=== PATIENT | female | born 1965 | race African-American/Black ===

== ENCOUNTER 2017-03-07 20:22 | Emergency (ER) | payer MEDICAID ==
[~2017-03-07] VITALS: Ht 167.6 cm; Wt 97.0 kg
[2017-03-07 22:01] VITALS: BP 155/73
[2017-03-07] MEDS ORDERED: SODIUM CHLORIDE 0.9% 1,000 ML IV ONE (23:18)
[2017-03-08 01:30] LABS: PROTHROMBIN TIME 10.4 sec
[2017-03-08 01:32] LABS: BASOPHILS % 1.1 % (0.0-2.0); HEMOGLOBIN. 10.1 g/dL (12.0-16.0); LYMPHOCYTES % 25.1 % (20.0-50.0); MEAN CORPUSCULAR HEMOGLOBIN 25.5 pg (28.0-32.0); MEAN CORPUSCULAR HGB CONC 32.6 g/dL (31.0-37.0); MEAN CORPUSCULAR VOLUME 78.3 fL (81.0-99.0); MEAN PLATELET VOLUME 9.1 fl (7.4-10.4); MONOCYTES % 8.6 % (2.0-8.0); NEUTROPHILS % 63.2 % (40.0-76.0); PLATELET 256 x1000/uL (130-400); RED BLOOD CELL COUNT 3.96 mill/uL (4.2-5.4); RED CELL DISTRIBUTION WIDTH 20.8 % (11.6-14.6); WHITE BLOOD COUNT 6.8 x1000/uL (4.5-11.0)
[2017-03-08 01:35] LABS: ALANINE AMINOTRANSFERASE 21 IU/L (13-61); ALBUMIN 3.4 g/dL (3.4-5.0); ANION GAP 9; CALCIUM 8.2 mg/dL (8.5-10.1); CARBON DIOXIDE 26 mEq/L (21-32); CHLORIDE 107 mEq/L (98-107); INDEX HEMOLYSI 1 (1-3); INDEX ICTERIC 1 (1-4); INDEX LIPEMIC 1 (1-3); TROPONIN I < 0.02 ng/mL (0.00-0.04); UREA NITROGEN BLOOD 12 mg/dL (7-21); eGFR > 60 mL/min (>60)
[2017-03-08 01:40] LABS: DIFFERENTIAL COMMENT 1
== END 2017-03-08 06:06 | disposition home or self-care (01) ==
LOC: ER 22:15
DX: R53.1 Weakness (principal); D64.9 Anemia, unspecified; I10 Essential (primary) hypertension; Z96.649 Presence of unspecified artificial hip joint
CPT/HCPCS: 36415; 70450; 71010; 80053; 84484; 85025; 85610; 93005; 99285; J7030

== ENCOUNTER 2017-05-22 10:56 | Inpatient (IN) | payer MEDICAID ==
[~2017-05-22] VITALS: Ht 167.6 cm; Wt 107.0 kg
[~2017-05-22 10:56] MED LIST: ASPI-1159 PO; CLON0.1T14 PO
[2017-05-22] MEDS ORDERED: ASPIRIN 81MG TABLET PO ONE (11:15)
[2017-05-22] MEDS ORDERED: NITROGLYCERIN 0.4MG TABLET SL SL PRN (11:15)
[2017-05-22 11:55] LABS: BASOPHILS % 1.3 % (0.0-2.0); EOSINOPHILS % 3.1 % (0.0-5.0); LYMPHOCYTES % 24.6 % (20.0-50.0); MEAN CORPUSCULAR HEMOGLOBIN 25.9 pg (28.0-32.0); MEAN CORPUSCULAR VOLUME 83.3 fL (81.0-99.0); MEAN PLATELET VOLUME 8.8 fl (7.4-10.4); MONOCYTES % 6.1 % (2.0-8.0); NEUTROPHILS % 64.9 % (40.0-76.0); PLATELET 209 x1000/uL (130-400); RED BLOOD CELL COUNT 2.49 mill/uL (4.2-5.4); RED CELL DISTRIBUTION WIDTH 23.8 % (11.6-14.6)
[2017-05-22 11:56] LABS: PROTHROMBIN TIME 10.6 sec
[2017-05-22 11:57] LABS: HEMOGLOBIN. 6.5 g/dL (12.0-16.0)
[2017-05-22 11:58] LABS: HEMATOCRIT. 20.8 % (36.0-48.0)
[2017-05-22 12:01] LABS: CARBON DIOXIDE 23 mEq/L (21-32); CHLORIDE 109 mEq/L (98-107)
[2017-05-22 12:06] LABS: TROPONIN I < 0.02 ng/mL (0.00-0.04)
[2017-05-22] MEDS ORDERED: IPRATROPIUM/ALBUTEROL 0.5-3(2.5)MG/3ML NEB INH PRN (13:15)
[2017-05-22] MEDS ORDERED: ONDANSETRON HCL 4MG/2ML VIAL IV PRN (13:15)
[2017-05-22] MEDS ORDERED: MAGNESIUM/ALUMINUM HYDROXIDE/SIMETHICONE 30ML UDC PO PRN (13:15)
[2017-05-22 14:24] LABS: PLATELET ESTIMATE NORMAL
[2017-05-22 15:05] LABS: CARBON DIOXIDE 23 mEq/L (21-32); CHLORIDE 108 mEq/L (98-107)
[2017-05-22 15:10] LABS: CREATINE KINASE 137 IU/L (26-192); TROPONIN I < 0.02 ng/mL (0.00-0.04)
[2017-05-22] MEDS: CLONIDINE 0.1MG TABLET PO PRN (15:10)
[2017-05-22 15:11] LABS: CREATINE KINASE MB FRACTION < 0.5 ng/mL (0.5-3.6)
[2017-05-22] MEDS: PANTOPRAZOLE SODIUM 40 MG/VIAL IV SCH (16:33)
[2017-05-22 16:40] VITALS: BP 132/81
[2017-05-22 16:49] VITALS: BP 157/84
[2017-05-22 17:40] VITALS: BP 139/79
[2017-05-22 20:00] VITALS: BP 136/76
[2017-05-22 23:38] LABS: CREATINE KINASE 119 IU/L (26-192); CREATINE KINASE MB FRACTION 0.6 ng/mL (0.5-3.6); TROPONIN I < 0.02 ng/mL (0.00-0.04)
[2017-05-23] VITALS: BP 130/67
[2017-05-23 04:00] VITALS: BP 130/67
[2017-05-23 06:01] LABS: BASOPHILS % 1.9 % (0.0-2.0); EOSINOPHILS % 3.8 % (0.0-5.0); HEMATOCRIT. 23.8 % (36.0-48.0); HEMOGLOBIN. 7.5 g/dL (12.0-16.0); LYMPHOCYTES % 23.4 % (20.0-50.0); MEAN CORPUSCULAR HEMOGLOBIN 25.9 pg (28.0-32.0); MEAN CORPUSCULAR VOLUME 82.7 fL (81.0-99.0); MEAN PLATELET VOLUME 8.5 fl (7.4-10.4); MONOCYTES % 6.3 % (2.0-8.0); NEUTROPHILS % 64.6 % (40.0-76.0); PLATELET 232 x1000/uL (130-400); RED BLOOD CELL COUNT 2.88 mill/uL (4.2-5.4); RED CELL DISTRIBUTION WIDTH 21.3 % (11.6-14.6)
[2017-05-23 08:30] VITALS: BP 144/86
[2017-05-23] MEDS: PANTOPRAZOLE SODIUM 40 MG/VIAL IV SCH (09:04)
[2017-05-23 12:00] VITALS: BP 132/70
[2017-05-23 16:00] VITALS: BP 136/76
[2017-05-23] MEDS: ACETAMINOPHEN 325MG TABLET PO PRN (18:29)
[2017-05-23 20:00] VITALS: BP 133/68
[2017-05-24] VITALS: BP 133/68
[2017-05-24 04:15] VITALS: BP 128/82
[2017-05-24 08:00] VITALS: BP 143/93
[2017-05-24] MEDS: PANTOPRAZOLE SODIUM 40 MG/VIAL IV SCH (08:35)
[2017-05-24] MEDS: ACETAMINOPHEN 325MG TABLET PO PRN (11:17)
[2017-05-24 12:00] VITALS: BP 134/82
[2017-05-24 16:00] VITALS: BP 114/72
[2017-05-24 20:00] VITALS: BP 158/96
[2017-05-24] MEDS: CLONIDINE 0.1MG TABLET PO PRN (21:15)
[2017-05-25] VITALS: BP 109/60
[2017-05-25 06:00] VITALS: BP 128/63
[2017-05-25] MEDS ORDERED: PANTOPRAZOLE 40MG DR TABLET PO SCH (06:45)
[2017-05-25 07:13] LABS: HEMATOCRIT. 25.8 % (36.0-48.0); HEMOGLOBIN. 8.1 g/dL (12.0-16.0); MEAN CORPUSCULAR HEMOGLOBIN 25.8 pg (28.0-32.0); MEAN CORPUSCULAR VOLUME 82.5 fL (81.0-99.0); MEAN PLATELET VOLUME 8.9 fl (7.4-10.4); PLATELET 365 x1000/uL (130-400); RED BLOOD CELL COUNT 3.13 mill/uL (4.2-5.4); RED CELL DISTRIBUTION WIDTH 21.6 % (11.6-14.6)
[2017-05-25 07:48] LABS: CARBON DIOXIDE 23 mEq/L (21-32); CHLORIDE 110 mEq/L (98-107)
[2017-05-25 08:00] VITALS: BP 125/76
[2017-05-25] MEDS ORDERED: SODIUM CHLORIDE 0.9% 10ML VIAL ONE (10:39)
[2017-05-25] MEDS ORDERED: IOHEXOL-350 100 ML BOTTLE ONE (10:39)
[2017-05-25 10:48] LABS: PLATELET ESTIMATE NORMAL
[2017-05-25 12:00] VITALS: BP 147/84
[2017-05-25 13:01] VITALS: BP 147/84
== END 2017-05-25 15:50 | disposition home or self-care (01) | DRG 243 ==
LOC: ER 10:56 → ENRESERV 12:50 → 5WST 12:50
PROVIDERS: ADMIT Internal Medicine; ATTEND Internal Medicine
PROC: 30233N1 Transfusion of Nonautologous Red Blood Cells into Peripheral Vein, Percutaneous Approach (ICD-10-PCS; principal; 2017-05-22)
PROC: 02HV33Z Insertion of Infusion Device into Superior Vena Cava, Percutaneous Approach (ICD-10-PCS; 2017-05-25)
PROC: B5181ZA Fluoroscopy of Superior Vena Cava using Low Osmolar Contrast, Guidance (ICD-10-PCS; 2017-05-25)
PROC: B548ZZA Ultrasonography of Superior Vena Cava, Guidance (ICD-10-PCS; 2017-05-25)
DX: K21.9 Gastro-esophageal reflux disease without esophagitis (principal); E44.1 Mild protein-calorie malnutrition; I16.1 Hypertensive emergency; F32.9 Major depressive disorder, single episode, unspecified; D50.9 Iron deficiency anemia, unspecified; E11.9 Type 2 diabetes mellitus without complications; J98.11 Atelectasis; E03.9 Hypothyroidism, unspecified; E78.5 Hyperlipidemia, unspecified; F41.9 Anxiety disorder, unspecified; M79.7 Fibromyalgia; Z86.73 Personal history of transient ischemic attack (TIA), and cerebral infarction without residual deficits; Z96.649 Presence of unspecified artificial hip joint; Z79.84 Long term (current) use of oral hypoglycemic drugs; Z79.899 Other long term (current) drug therapy; Z90.49 Acquired absence of other specified parts of digestive tract; Z79.82 Long term (current) use of aspirin
CPT/HCPCS: 36415; 36569; 71010; 71275; 76937; 77001; 80048; 80053; 80061; 82550; 82553; 82728; 83540; 83550; 83735; 83880; 84443; 84484; 85025; 85610; 86850; 86900; 86920; 93005; 93970; 96374; 99291; A4216; C1725; C9113; J7040; P9016; Q9967

== ENCOUNTER 2017-07-31 17:33 | Inpatient (IN) | payer MEDICAID ==
[~2017-07-31] VITALS: Ht 167.6 cm; Wt 103.4 kg
[2017-07-31] MEDS ORDERED: MORPHINE SULFATE 4 MG/ML CPJ (NOT FOR IM USE) IV ONE (19:15)
[2017-07-31 19:36] LABS: HEMATOCRIT. 25.9 % (36.0-48.0); HEMOGLOBIN. 8.2 g/dL (12.0-16.0); MEAN CORPUSCULAR HEMOGLOBIN 23.7 pg (28.0-32.0); MEAN CORPUSCULAR VOLUME 74.6 fL (81.0-99.0); MEAN PLATELET VOLUME 7.9 fl (7.4-10.4); PLATELET 280 x1000/uL (130-400); RED BLOOD CELL COUNT 3.47 mill/uL (4.2-5.4); RED CELL DISTRIBUTION WIDTH 19.7 % (11.6-14.6)
[2017-07-31 19:43] LABS: PROTHROMBIN TIME 10.7 sec (9.4-11.6)
[2017-07-31 19:47] LABS: CARBON DIOXIDE 24 mEq/L (21-32); CHLORIDE 108 mEq/L (98-107)
[2017-07-31 19:55] LABS: TROPONIN I < 0.02 ng/mL (0.00-0.04)
[2017-07-31] MEDS ORDERED: ASPIRIN 81MG TABLET PO ONE (20:00)
[2017-07-31 20:07] LABS: PLATELET ESTIMATE NORMAL
[2017-07-31 22:34] VITALS: BP 149/80
[2017-07-31] MEDS ORDERED: LEVO25TA7 PO (23:46)
[2017-07-31] MEDS ORDERED: HYDR25TA PO (23:46)
[2017-08-01] MEDS ORDERED: ACETAMINOPHEN 325MG TABLET PO PRN (00:30)
[2017-08-01] MEDS ORDERED: IPRATROPIUM/ALBUTEROL 0.5-3(2.5)MG/3ML NEB INH PRN (00:30)
[2017-08-01] MEDS ORDERED: HYDROCODONE/ACETAMINOPHEN 5/325MG TABLET PO PRN (00:30)
[2017-08-01] MEDS ORDERED: ONDANSETRON HCL 4MG/2ML VIAL IV PRN (00:30)
[2017-08-01] MEDS ORDERED: DOCUSATE SODIUM 100MG CAPSULE PO PRN (00:30)
[2017-08-01] MEDS ORDERED: MAGNESIUM/ALUMINUM HYDROXIDE/SIMETHICONE 30ML UDC PO PRN (00:30)
[2017-08-01] MEDS ORDERED: CLONIDINE 0.1MG TABLET PO PRN (00:30)
[2017-08-01 04:00] VITALS: BP 121/68
[2017-08-01 08:12] VITALS: BP 151/78
[2017-08-01] MEDS: FERROUS SULFATE 325MG TABLET PO SCH ×2 (09:00→09:58)
[2017-08-01 09:40] LABS: HEMATOCRIT. 25.8 % (36.0-48.0); HEMOGLOBIN. 8.1 g/dL (12.0-16.0); MEAN CORPUSCULAR HEMOGLOBIN 23.4 pg (28.0-32.0); MEAN PLATELET VOLUME 8.4 fl (7.4-10.4); PLATELET 247 x1000/uL (130-400); RED BLOOD CELL COUNT 3.44 mill/uL (4.2-5.4); RED CELL DISTRIBUTION WIDTH 18.8 % (11.6-14.6)
[2017-08-01] MEDS: FOLIC ACID 1MG TABLET PO SCH (09:58)
[2017-08-01] MEDS: MULTIVITAMINS,THER W-MINERALS TABLET PO SCH (09:58)
[2017-08-01] MEDS: THIAMINE HCL 100MG TABLET PO SCH (09:58)
[2017-08-01 10:17] LABS: CARBON DIOXIDE 25 mEq/L (21-32); CHLORIDE 108 mEq/L (98-107); CREATINE KINASE 162 IU/L (26-192); HDL CHOLESTEROL 81 mg/dL (40-59); LDL CHOLESTEROL 82 mg/dL (5-100); TROPONIN I < 0.02 ng/mL (0.00-0.04)
[2017-08-01 10:43] LABS: CLARITY URINE CLEAR (CLEAR); COLOR URINE YELLOW (YELLOW); GLUCOSE URINE NEGATIVE (NEGATIVE); KETONES URINE NEGATIVE (NEGATIVE); LEUKOCYTE ESTERASE URINE NEGATIVE (NEGATIVE); NITRITE URINE NEGATIVE (NEGATIVE); OCCULT BLOOD URINE NEGATIVE (NEGATIVE); PH URINE 6.5 (4.5-8.0); PROTEIN URINE NEGATIVE (NEGATIVE); SPECIFIC GRAVITY URINE 1.012 (1.005-1.030); UROBILINOGEN URINE 0.2 E.U./dL (0.2-1.0)
[2017-08-01 11:01] LABS: *AMPHETAMINES SCREEN URINE NEGATIVE (NEGATIVE); *BARBITURATES SCREEN URINE NEGATIVE (NEGATIVE); *BENZODIAZEPINES SCREEN URINE NEGATIVE (NEGATIVE); *COCAINE SCREEN URINE NEGATIVE (NEGATIVE); CANNABINOID URINE SCREEN NEGATIVE (NEGATIVE); METHADONE URINE SCREEN NEGATIVE (NEGATIVE); OPIATES URINE SCREEN PRESUMTIVE POSITIVE (NEGATIVE); PHENCYCLIDINE URINE SCREEN NEGATIVE (NEGATIVE)
[2017-08-01 12:05] VITALS: BP 139/70
[2017-08-01 13:49] LABS: PLATELET ESTIMATE NORMAL
[2017-08-01 16:37] LABS: CREATINE KINASE 182 IU/L (26-192); CREATINE KINASE MB FRACTION 0.7 ng/mL (0.5-3.6); TROPONIN I < 0.02 ng/mL (0.00-0.04)
[2017-08-01 16:54] VITALS: BP 152/78
[2017-08-01 20:00] VITALS: BP 148/81
[2017-08-02] VITALS: BP 152/76
[2017-08-02 04:00] VITALS: BP 135/62
[2017-08-02 07:04] LABS: HEMATOCRIT. 26.2 % (36.0-48.0); HEMOGLOBIN. 8.4 g/dL (12.0-16.0); MEAN CORPUSCULAR HEMOGLOBIN 23.6 pg (28.0-32.0); MEAN CORPUSCULAR VOLUME 73.8 fL (81.0-99.0); MEAN PLATELET VOLUME 8.7 fl (7.4-10.4); PLATELET 258 x1000/uL (130-400); RED BLOOD CELL COUNT 3.56 mill/uL (4.2-5.4); RED CELL DISTRIBUTION WIDTH 19.1 % (11.6-14.6)
[2017-08-02] MEDS ORDERED: LEVOTHYROXINE SODIUM 25MCG TABLET PO SCH (07:20)
[2017-08-02 07:49] LABS: CARBON DIOXIDE 24 mEq/L (21-32); CHLORIDE 107 mEq/L (98-107)
[2017-08-02 08:16] VITALS: BP 161/87
[2017-08-02] MEDS: MULTIVITAMINS,THER W-MINERALS TABLET PO SCH (08:46)
[2017-08-02] MEDS: THIAMINE HCL 100MG TABLET PO SCH (08:46)
[2017-08-02] MEDS: FERROUS SULFATE 325MG TABLET PO SCH (08:46)
[2017-08-02] MEDS: FOLIC ACID 1MG TABLET PO SCH (08:46)
[2017-08-02] MEDS ORDERED: ASPIRIN 81MG EC TABLET PO SCH (09:00)
[2017-08-02] MEDS ORDERED: HYDROCHLOROTHIAZIDE 25MG TABLET PO SCH (09:00)
[2017-08-02] MEDS ORDERED: CLONIDINE 0.1MG TABLET PO SCH (09:00)
[2017-08-02] MEDS ORDERED: DILTIAZEM HCL 120MG CAPSULE CD 24HR PO SCH (10:15)
[2017-08-02 12:24] VITALS: BP 132/73
[2017-08-02 14:53] LABS: PLATELET ESTIMATE NORMAL
[2017-08-02 15:19] VITALS: BP 132/73
[2017-08-02 16:52] VITALS: BP 130/77
== END 2017-08-02 16:25 | disposition home or self-care (01) | DRG 203 ==
LOC: ER 17:56 → EDBEDREQ 19:04 → EDBEDREQTM 20:18 → EDBEDREQ 20:18 → 6WST 20:18 → ENRESERV 20:47
PROVIDERS: ADMIT Internal Medicine; ATTEND Internal Medicine
DX: M94.0 Chondrocostal junction syndrome [Tietze] (principal); F20.9 Schizophrenia, unspecified; I10 Essential (primary) hypertension; D64.9 Anemia, unspecified; F31.9 Bipolar disorder, unspecified; M19.90 Unspecified osteoarthritis, unspecified site; M79.7 Fibromyalgia; Z96.643 Presence of artificial hip joint, bilateral; E66.9 Obesity, unspecified; Z68.36 Body mass index [BMI] 36.0-36.9, adult; Z79.899 Other long term (current) drug therapy; Z79.82 Long term (current) use of aspirin
CPT/HCPCS: 36415; 71010; 80048; 80053; 80061; 80305; 81003; 82550; 82553; 83735; 83880; 84443; 84484; 85025; 85610; 93005; 93971; 96374; 99285; J2270

== ENCOUNTER 2017-08-08 09:44 | Emergency (ER) | payer MEDICAID ==
[~2017-08-08] VITALS: Ht 167.6 cm; Wt 103.0 kg
[~2017-08-08 09:44] MED LIST changes: -ASPI-1159 PO; +HYDR25TA PO; +LEVO25TA7 PO
[2017-08-08] MEDS ORDERED: KETOROLAC 60MG/2ML VIAL IM ONE (11:30)
[2017-08-08 11:59] LABS: BASOPHILS % 1.3 % (0.0-2.0); EOSINOPHILS % 8.1 % (0.0-5.0); HEMATOCRIT. 27.3 % (36.0-48.0); HEMOGLOBIN. 8.6 g/dL (12.0-16.0); LYMPHOCYTES % 18.3 % (20.0-50.0); MEAN CORPUSCULAR HEMOGLOBIN 23.6 pg (28.0-32.0); MEAN PLATELET VOLUME 8.2 fl (7.4-10.4); MONOCYTES % 9.9 % (2.0-8.0); NEUTROPHILS % 62.4 % (40.0-76.0); PLATELET 231 x1000/uL (130-400); PROTHROMBIN TIME 10.7 sec (9.4-11.6); RED BLOOD CELL COUNT 3.63 mill/uL (4.2-5.4); RED CELL DISTRIBUTION WIDTH 18.8 % (11.6-14.6)
[2017-08-08 12:08] LABS: CARBON DIOXIDE 24 mEq/L (21-32); CHLORIDE 109 mEq/L (98-107); TROPONIN I < 0.02 ng/mL (0.00-0.04)
[2017-08-08 15:35] VITALS: BP 158/87
== END 2017-08-08 15:35 | disposition home or self-care (01) ==
LOC: ER 09:44
DX: M77.9 Enthesopathy, unspecified (principal); I10 Essential (primary) hypertension; Z79.82 Long term (current) use of aspirin
CPT/HCPCS: 36415; 71010; 80053; 84484; 85025; 85610; 85730; 93005; 93971; 96372; 99285; J1885; Z7610

== ENCOUNTER 2017-10-18 02:34 | Emergency (ER) | payer MEDICAID ==
[~2017-10-18] VITALS: Ht 167.6 cm; Wt 107.5 kg
[2017-10-18 05:20] LABS: BASOPHILS % 1.5 % (0.0-2.0); EOSINOPHILS % 1.6 % (0.0-5.0); HEMATOCRIT. 25.6 % (36.0-48.0); HEMOGLOBIN. 7.8 g/dL (12.0-16.0); LYMPHOCYTES % 30.1 % (20.0-50.0); MEAN CORPUSCULAR HEMOGLOBIN 21.2 pg (28.0-32.0); MEAN CORPUSCULAR VOLUME 70.1 fL (81.0-99.0); MEAN PLATELET VOLUME 9.1 fl (7.4-10.4); MONOCYTES % 6.7 % (2.0-8.0); NEUTROPHILS % 60.1 % (40.0-76.0); PLATELET 265 x1000/uL (130-400); RED BLOOD CELL COUNT 3.66 mill/uL (4.2-5.4); RED CELL DISTRIBUTION WIDTH 18.8 % (11.6-14.6)
[2017-10-18 05:23] LABS: PROTHROMBIN TIME 10.5 sec (9.4-11.6)
[2017-10-18 05:32] LABS: CARBON DIOXIDE 26 mEq/L (21-32); CHLORIDE 108 mEq/L (98-107); ETHANOL BLOOD < 10 mg/dL; TROPONIN I < 0.02 ng/mL (0.00-0.04)
[2017-10-18] MEDS: NITROGLYCERIN 0.4MG TABLET SL SL PRN (05:39)
[2017-10-18] MEDS: ASPIRIN 81MG TABLET PO ONE (05:39)
[2017-10-18 05:55] LABS: *AMPHETAMINES SCREEN URINE NEGATIVE (NEGATIVE); *BARBITURATES SCREEN URINE NEGATIVE (NEGATIVE); *BENZODIAZEPINES SCREEN URINE NEGATIVE (NEGATIVE); *COCAINE SCREEN URINE NEGATIVE (NEGATIVE); CANNABINOID URINE SCREEN NEGATIVE (NEGATIVE); METHADONE URINE SCREEN NEGATIVE (NEGATIVE); OPIATES URINE SCREEN NEGATIVE (NEGATIVE); PHENCYCLIDINE URINE SCREEN NEGATIVE (NEGATIVE)
[2017-10-18 09:40] VITALS: BP 140/72
== END 2017-10-18 09:48 | disposition home or self-care (01) ==
LOC: ER 03:00
DX: R07.89 Other chest pain (principal); I10 Essential (primary) hypertension; Z86.73 Personal history of transient ischemic attack (TIA), and cerebral infarction without residual deficits
CPT/HCPCS: 36415; 71010; 80053; 80305; 84484; 85025; 85610; 93005; 99285; G0482; Z7610

== ENCOUNTER 2018-01-20 12:33 | Emergency (ER) | payer MEDICAID ==
[~2018-01-20] VITALS: Ht 167.6 cm; Wt 113.0 kg
[2018-01-20 13:22] VITALS: BP 175/95
[2018-01-20] MEDS ORDERED: ACETAMINOPHEN 500MG TABLET PO ONE (14:00)
== END 2018-01-20 14:54 | disposition home or self-care (01) ==
LOC: ER 13:22
DX: M54.5 Low back pain (principal); I10 Essential (primary) hypertension; Z90.49 Acquired absence of other specified parts of digestive tract
CPT/HCPCS: 99282; Z7610

== ENCOUNTER 2018-03-11 21:28 | Inpatient (IN) | payer MEDICAID ==
[~2018-03-11] VITALS: Ht 167.6 cm; Wt 108.9 kg
[2018-03-11] MEDS ORDERED: LABETALOL 5MG/ML SYR 20 MG/4 ML SYRINGE IV ONE (22:00)
[2018-03-11] MEDS ORDERED: IOHEXOL-350 100 ML BOTTLE ONE (22:41)
[2018-03-11 23:07] LABS: HEMATOCRIT. 29.9 % (36.0-48.0); HEMOGLOBIN. 9.2 g/dL (12.0-16.0); MEAN CORPUSCULAR HEMOGLOBIN 21.5 pg (28.0-32.0); MEAN CORPUSCULAR VOLUME 69.9 fL (81.0-99.0); MEAN PLATELET VOLUME 8.2 fl (7.4-10.4); PLATELET 288 x1000/uL (130-400); RED BLOOD CELL COUNT 4.28 mill/uL (4.2-5.4); RED CELL DISTRIBUTION WIDTH 20.4 % (11.6-14.6)
[2018-03-11 23:13] LABS: CHLORIDE 107 mEq/L (98-107)
[2018-03-11 23:16] LABS: PARTIAL THROMBOPLASTIN TIME 27.1 sec (23.4-31.0); PROTHROMBIN TIME 10.2 sec (9.4-11.6)
[2018-03-11 23:17] LABS: ETHANOL BLOOD < 10 mg/dL
[2018-03-11 23:20] LABS: LDL CHOLESTEROL 92 mg/dL (5-100)
[2018-03-11 23:22] LABS: CREATINE KINASE 187 IU/L (26-192)
[2018-03-11 23:24] LABS: ATYPICAL LYMPHOCYTES 2; PLATELET ESTIMATE NORMAL
[2018-03-12] MEDS ORDERED: ASPIRIN 81MG TABLET PO ONE
[2018-03-12] MEDS ORDERED: NIFEDIPINE XL 60MG TAB PO SCH (00:30)
[2018-03-12] MEDS ORDERED: ONDANSETRON HCL 4MG/2ML VIAL IV PRN (00:30)
[2018-03-12] MEDS ORDERED: MAGNESIUM/ALUMINUM HYDROXIDE/SIMETHICONE 30ML UDC PO PRN (00:30)
[2018-03-12] MEDS ORDERED: DOCUSATE SODIUM 100MG CAPSULE PO PRN (00:30)
[2018-03-12] MEDS ORDERED: CLONIDINE 0.1MG TABLET PO PRN (00:30)
[2018-03-12] MEDS ORDERED: IPRATROPIUM/ALBUTEROL 0.5-3(2.5)MG/3ML NEB INH PRN (00:30)
[2018-03-12] MEDS ORDERED: HYDROCODONE/ACETAMINOPHEN 5/325MG TABLET PO PRN (00:30)
[2018-03-12] MEDS ORDERED: ACETAMINOPHEN 325MG TABLET PO PRN (00:30)
[2018-03-12 06:49] LABS: CHLORIDE 106 mEq/L (98-107)
[2018-03-12 06:58] LABS: CREATINE KINASE 171 IU/L (26-192)
[2018-03-12 07:00] LABS: CREATINE KINASE MB FRACTION 1.4 ng/mL (0.5-3.6)
[2018-03-12 10:30] VITALS: BP 170/85
[2018-03-12] MEDS: NIFEDIPINE XL 60MG TAB PO SCH (10:57)
[2018-03-12 12:00] VITALS: BP 162/85
[2018-03-12 16:00] VITALS: BP 145/82
[2018-03-12 16:08] LABS: CREATINE KINASE 165 IU/L (26-192)
[2018-03-12 16:09] LABS: CREATINE KINASE MB FRACTION 0.8 ng/mL (0.5-3.6)
[2018-03-12 20:00] VITALS: BP 129/75
[2018-03-13] VITALS (7 sets, daily range): BP systolic 115–149; BP diastolic 66–78
[2018-03-13 06:31] LABS: HEMOGLOBIN. 9.2 g/dL (12.0-16.0); MEAN CORPUSCULAR HEMOGLOBIN 21.2 pg (28.0-32.0); MEAN PLATELET VOLUME 8.7 fl (7.4-10.4); PLATELET 291 x1000/uL (130-400); RED BLOOD CELL COUNT 4.35 mill/uL (4.2-5.4); RED CELL DISTRIBUTION WIDTH 20.2 % (11.6-14.6)
[2018-03-13] MEDS ORDERED: HYDROCODONE/ACETAMINOPHEN 10/325MG TABLET PO PRN (08:30)
[2018-03-13 09:06] LABS: PLATELET ESTIMATE NORMAL
[2018-03-13] MEDS: ASPIRIN 81MG EC TABLET PO SCH (09:52)
[2018-03-13] MEDS: NIFEDIPINE XL 60MG TAB PO SCH (09:53)
[2018-03-13] MEDS ORDERED: GADOBENATE DIMEGLUMINE 529 MG/ML 10ML IV ONE (11:43)
[2018-03-13] MEDS: LOSARTAN POTASSIUM 50 MG TABLET PO SCH (13:21)
[2018-03-13] MEDS ORDERED: NIFE60TA64 PO (13:36)
[2018-03-13] MEDS ORDERED: DOCU-138 PO (13:36)
[2018-03-13] MEDS ORDERED: ASPI-1158 PO (13:36)
[2018-03-13] MEDS ORDERED: LOSA50TA3 PO (13:36)
[2018-03-13] MEDS: ENOXAPARIN 30MG/0.3ML SYR SUBCUT SCH (18:43)
[2018-03-14] VITALS: BP 123/81
[2018-03-14 04:00] VITALS: BP 143/79
[2018-03-14] MEDS: ENOXAPARIN 30MG/0.3ML SYR SUBCUT SCH (06:44)
[2018-03-14 08:00] VITALS: BP 128/78
[2018-03-14] MEDS: ASPIRIN 81MG EC TABLET PO SCH (09:02)
[2018-03-14] MEDS: LOSARTAN POTASSIUM 50 MG TABLET PO SCH (09:02)
[2018-03-14] MEDS: NIFEDIPINE XL 60MG TAB PO SCH (09:03)
[2018-03-14 16:00] VITALS: BP 132/74
== END 2018-03-14 17:25 | disposition home health service (06) | DRG 43 ==
LOC: ER 21:28 → 8WST 23:54 → EDBEDREQSVC 23:57 → EDBEDREQ 23:57 → EDBEDREQTM 23:57 → ENRESERV 03-12 09:54
PROVIDERS: ADMIT Internal Medicine; ATTEND Internal Medicine
DX: G35 Multiple sclerosis (principal); G45.9 Transient cerebral ischemic attack, unspecified; I10 Essential (primary) hypertension; E03.9 Hypothyroidism, unspecified; D64.9 Anemia, unspecified; Z90.49 Acquired absence of other specified parts of digestive tract; Z79.899 Other long term (current) drug therapy; I16.0 Hypertensive urgency
CPT/HCPCS: 36415; 70450; 70496; 70551; 70552; 71045; 80048; 80053; 80061; 82550; 82553; 82962; 83690; 83721; 83735; 83880; 84443; 84484; 85025; 85610; 85730; 93005; 93306; 93880; 93970; 96374; 97110; 97116; 97162; 97166; 99291; A9577; C1893; G0482; J1650; J3490; Q9967

== ENCOUNTER 2018-03-20 19:09 | Emergency (ER) | payer MEDICAID ==
[~2018-03-20] VITALS: Ht 167.6 cm; Wt 112.0 kg
[~2018-03-20 19:09] MED LIST changes: +ASPI-1158 PO; -CLON0.1T14 PO; +DOCU-138 PO; +LOSA50TA3 PO; +NIFE60TA64 PO
[2018-03-20] MEDS ORDERED: SODIUM CHLORIDE 0.9% 500 ML IV ONE (20:14)
[2018-03-20] MEDS ORDERED: ONDANSETRON HCL 4MG/2ML VIAL IV ONE (20:15)
[2018-03-20 20:55] LABS: BASOPHILS % 1.3 % (0.0-2.0); HEMATOCRIT. 28.1 % (36.0-48.0); HEMOGLOBIN. 8.8 g/dL (12.0-16.0); MEAN CORPUSCULAR HEMOGLOBIN 21.7 pg (28.0-32.0); MEAN CORPUSCULAR VOLUME 69.4 fL (81.0-99.0); MEAN PLATELET VOLUME 8.4 fl (7.4-10.4); MONOCYTES % 9.4 % (2.0-8.0); NEUTROPHILS % 69.3 % (40.0-76.0); PLATELET 267 x1000/uL (130-400); RED BLOOD CELL COUNT 4.05 mill/uL (4.2-5.4); RED CELL DISTRIBUTION WIDTH 20.7 % (11.6-14.6)
[2018-03-20 21:00] LABS: PROTHROMBIN TIME 10.2 sec (9.4-11.6)
[2018-03-20 21:22] LABS: PLATELET ESTIMATE NORMAL
[2018-03-20] MEDS ORDERED: METOCLOPRAMIDE HCL 10MG/2ML VIAL IV ONE (22:15)
[2018-03-20] MEDS ORDERED: DIPHENHYDRAMINE 50MG/ML VIAL IV ONE (22:15)
[2018-03-21 00:30] LABS: CHLORIDE 109 mEq/L (98-107)
[2018-03-21 00:56] VITALS: BP 160/85
== END 2018-03-21 01:01 | disposition home or self-care (01) ==
LOC: ER 21:23
DX: R55 Syncope and collapse (principal); R51 Headache; R11.2 Nausea with vomiting, unspecified; H53.8 Other visual disturbances; D50.9 Iron deficiency anemia, unspecified; I10 Essential (primary) hypertension; E03.9 Hypothyroidism, unspecified; Z79.82 Long term (current) use of aspirin; Z86.73 Personal history of transient ischemic attack (TIA), and cerebral infarction without residual deficits; Z90.49 Acquired absence of other specified parts of digestive tract; Z98.890 Other specified postprocedural states; Z96.659 Presence of unspecified artificial knee joint; Z79.899 Other long term (current) drug therapy
CPT/HCPCS: 36415; 70450; 71045; 80048; 83735; 83880; 84484; 85025; 85610; 93005; 96361; 96374; 96375; 99285; J1200; J2405; J2765; J7030; J7040; Z7610

== ENCOUNTER 2018-06-16 13:30 | Emergency (ER) | payer MEDICAID ==
[~2018-06-16] VITALS: Ht 167.6 cm; Wt 112.0 kg
[2018-06-16 17:09] VITALS: BP 167/74
== END 2018-06-16 17:10 | disposition home or self-care (01) ==
LOC: ER 13:30
DX: M79.662 Pain in left lower leg (principal); M79.661 Pain in right lower leg; D64.9 Anemia, unspecified; I10 Essential (primary) hypertension; Z90.49 Acquired absence of other specified parts of digestive tract; Z79.82 Long term (current) use of aspirin; Z79.899 Other long term (current) drug therapy
CPT/HCPCS: 93970; 99284; Z7610

== ENCOUNTER 2018-09-17 21:35 | Emergency (ER) | payer MEDICAID ==
[~2018-09-17] VITALS: Ht 167.6 cm; Wt 118.0 kg
[2018-09-17 21:43] VITALS: BP 194/86
== END 2018-09-18 04:11 | disposition home or self-care (01) ==
LOC: ER 21:35
DX: Z53.21 Procedure and treatment not carried out due to patient leaving prior to being seen by health care provider (principal)

== ENCOUNTER 2018-10-27 17:38 | Inpatient (IN) | payer MEDICAID ==
[~2018-10-27] VITALS: Ht 167.6 cm; Wt 117.9 kg
[2018-10-27] MEDS ORDERED: LABETALOL HCL 20MG/4ML CARPUJECT IV ONE (18:00)
[2018-10-27] MEDS ORDERED: ACYCLOVIR 400 MG TABLET PO ONE (21:00)
[2018-10-27] MEDS ORDERED: PREDNISONE 20MG TABLET PO ONE (21:00)
[2018-10-27 21:32] LABS: BASOPHILS % 1.4 % (0.0-2.0); EOSINOPHILS % 2.6 % (0.0-5.0); HEMATOCRIT. 33.7 % (36.0-48.0); HEMOGLOBIN. 10.5 g/dL (12.0-16.0); LYMPHOCYTES % 30.3 % (20.0-50.0); MEAN CORPUSCULAR HEMOGLOBIN 23.8 pg (28.0-32.0); MEAN CORPUSCULAR VOLUME 76.5 fL (81.0-99.0); MONOCYTES % 7.6 % (2.0-8.0); NEUTROPHILS % 58.1 % (40.0-76.0); PLATELET 277 x1000/uL (130-400); RED CELL DISTRIBUTION WIDTH 20.8 % (11.6-14.6)
[2018-10-27 21:39] LABS: CHLORIDE 107 mEq/L (98-107)
[2018-10-27 21:41] LABS: PROTHROMBIN TIME 10.1 sec (9.1-11.1)
[2018-10-27] MEDS ORDERED: ASPIRIN 81MG TABLET PO ONE (21:45)
[2018-10-27 21:58] LABS: CLARITY URINE CLEAR (CLEAR); COLOR URINE YELLOW (YELLOW); KETONES URINE NEGATIVE (NEGATIVE); LEUKOCYTE ESTERASE URINE NEGATIVE (NEGATIVE); NITRITE URINE NEGATIVE (NEGATIVE); OCCULT BLOOD URINE NEGATIVE (NEGATIVE); PH URINE 6.5 (4.5-8.0); PROTEIN URINE NEGATIVE (NEGATIVE); SPECIFIC GRAVITY URINE 1.013 (1.005-1.030); UROBILINOGEN URINE 0.2 E.U./dL (0.2-1.0)
[2018-10-27] MEDS ORDERED: ACETAMINOPHEN 325MG TABLET PO PRN (22:00)
[2018-10-27] MEDS ORDERED: MAGNESIUM/ALUMINUM HYDROXIDE/SIMETHICONE 30ML UDC PO PRN (22:00)
[2018-10-27] MEDS ORDERED: DIPHENHYDRAMINE 50MG/ML VIAL IV PRN (22:00)
[2018-10-27] MEDS ORDERED: NA PHOS,M-B/NA PHOS,DI-BA ENEMA 118ML PR PRN (22:00)
[2018-10-27] MEDS ORDERED: TRAMADOL 50MG TABLET PO PRN (22:00)
[2018-10-27] MEDS ORDERED: DOCUSATE SODIUM 100MG CAPSULE PO PRN (22:00)
[2018-10-27] MEDS ORDERED: GUAIFENESIN 200MG/10ML SUGAR FREE UDC PO PRN (22:00)
[2018-10-27] MEDS ORDERED: KETOROLAC 15MG/ML VIAL IV PRN (22:00)
[2018-10-27] MEDS ORDERED: ONDANSETRON HCL 4MG/2ML INJ IV PRN (22:00)
[2018-10-27] MEDS ORDERED: IPRATROPIUM/ALBUTEROL 0.5-3(2.5)MG/3ML NEB INH PRN (22:00)
[2018-10-27] MEDS ORDERED: LORAZEPAM 0.5MG TABLET PO PRN (22:00)
[2018-10-27] MEDS ORDERED: NITROGLYCERIN 0.4MG TABLET SL SL PRN (22:00)
[2018-10-27] MEDS ORDERED: CLONIDINE 0.2MG TABLET PO PRN (22:00)
[2018-10-27 22:44] LABS: TOTAL IRON BINDING CAPACITY 503 ug/dL (250-450)
[2018-10-27 22:45] LABS: CREATINE KINASE 228 IU/L (26-192); HDL CHOLESTEROL 88 mg/dL (40-59); LDL CHOLESTEROL 96 mg/dL (5-100)
[2018-10-27 22:47] LABS: CREATINE KINASE MB FRACTION 1.3 ng/mL (0.5-3.6); T4 FREE 0.94 ng/dL (0.76-1.46)
[2018-10-27 22:57] LABS: FOLIC ACID (FOLATE) SERUM 7.5 ng/mL (>5.38)
[2018-10-28 06:45] LABS: CREATINE KINASE 223 IU/L (26-192)
[2018-10-28 06:46] LABS: CREATINE KINASE MB FRACTION 1.2 ng/mL (0.5-3.6)
[2018-10-28 15:17] LABS: *BARBITURATES SCREEN URINE NEGATIVE (NEGATIVE); *BENZODIAZEPINES SCREEN URINE NEGATIVE (NEGATIVE); *COCAINE SCREEN URINE NEGATIVE (NEGATIVE); METHADONE URINE SCREEN NEGATIVE (NEGATIVE); OPIATES URINE SCREEN NEGATIVE (NEGATIVE)
[2018-10-28 15:19] LABS: *AMPHETAMINES SCREEN URINE NEGATIVE (NEGATIVE); CANNABINOID URINE SCREEN NEGATIVE (NEGATIVE); PHENCYCLIDINE URINE SCREEN NEGATIVE (NEGATIVE)
[2018-10-28 20:09] VITALS: BP 161/87
[2018-10-28] MEDS ORDERED: ZOLPIDEM TARTRATE 5MG TABLET PO PRN (20:21)
[2018-10-28] MEDS: ENOXAPARIN 30MG/0.3ML SYR SUBCUT SCH ×2 (21:00→21:48)
[2018-10-28] MEDS: FAMOTIDINE 20MG TABLET PO SCH (21:46)
[2018-10-28] MEDS: LISINOPRIL 20MG TABLET PO SCH (21:47)
[2018-10-28] MEDS: METOPROLOL TARTRATE 25MG TABLET PO SCH (21:47)
[2018-10-28] MEDS: NIFEDIPINE XL 60MG TAB PO SCH (22:11)
[2018-10-29] VITALS: BP 120/65
[2018-10-29] MEDS ORDERED: CLON0.1T14 PO (00:47)
[2018-10-29] MEDS ORDERED: AMLO2.5T45 PO (00:47)
[2018-10-29] MEDS ORDERED: LEVO25TA2 PO (00:47)
[2018-10-29 04:00] VITALS: BP 112/63
[2018-10-29] MEDS: NIFEDIPINE XL 60MG TAB PO SCH ×3 (08:19→10:23)
[2018-10-29] MEDS: FAMOTIDINE 20MG TABLET PO SCH ×3 (08:20→10:21)
[2018-10-29] MEDS: ASPIRIN 325MG EC TABLET PO SCH ×3 (08:20→10:23)
[2018-10-29] MEDS: LISINOPRIL 20MG TABLET PO SCH ×3 (08:21→10:22)
[2018-10-29] MEDS: ENOXAPARIN 30MG/0.3ML SYR SUBCUT SCH ×3 (08:23→10:22)
[2018-10-29] MEDS: METOPROLOL TARTRATE 25MG TABLET PO SCH ×2 (08:29→20:23)
[2018-10-29 12:00] VITALS: BP 146/85
[2018-10-29 20:41] VITALS: BP 117/69
[2018-10-30 00:22] VITALS: BP 104/47
[2018-10-30 04:00] VITALS: BP 132/59
[2018-10-30] MEDS: LEVOTHYROXINE SODIUM 50MCG TABLET PO SCH (06:35)
[2018-10-30 08:00] VITALS: BP 132/75
[2018-10-30] MEDS: FAMOTIDINE 20MG TABLET PO SCH ×2 (09:00→22:20)
[2018-10-30] MEDS: ASPIRIN 325MG EC TABLET PO SCH (09:00)
[2018-10-30] MEDS: METOPROLOL TARTRATE 25MG TABLET PO SCH ×2 (09:00→22:21)
[2018-10-30] MEDS: ENOXAPARIN 30MG/0.3ML SYR SUBCUT SCH (09:00)
[2018-10-30] MEDS: LISINOPRIL 20MG TABLET PO SCH ×2 (09:01→22:21)
[2018-10-30] MEDS ORDERED: GADOBENATE DIMEGLUMINE 529 MG/ML 10ML IV ONE (11:22)
[2018-10-30 12:00] VITALS: BP 146/84
[2018-10-30 16:00] VITALS: BP 138/78
[2018-10-30 20:00] VITALS: BP 115/65
[2018-10-30] MEDS: DEXAMETHASONE 4MG/ML 1ML VIAL IV SCH (23:46)
[2018-10-31] VITALS: BP 127/62
[2018-10-31] MEDS: DEXAMETHASONE 4MG/ML 1ML VIAL IV SCH ×3 (05:41→14:01)
[2018-10-31] MEDS: LEVOTHYROXINE SODIUM 50MCG TABLET PO SCH (07:20)
[2018-10-31 08:00] VITALS: BP 172/86
[2018-10-31] MEDS: METOPROLOL TARTRATE 25MG TABLET PO SCH (09:00)
[2018-10-31] MEDS: LISINOPRIL 20MG TABLET PO SCH (09:00)
[2018-10-31] MEDS: FAMOTIDINE 20MG TABLET PO SCH (09:00)
[2018-10-31] MEDS: NIFEDIPINE XL 60MG TAB PO SCH (09:00)
== END 2018-10-31 17:49 | disposition left against medical advice (07) | DRG 347 ==
LOC: EDBEDREQ 17:57 → ER 19:51 → 6WST 21:57 → EDBEDREQ 22:02 → EDBEDREQTM 22:02 → ENRESERV 10-28 16:55
PROVIDERS: ADMIT Internal Medicine; ATTEND Internal Medicine
DX: M48.02 Spinal stenosis, cervical region (principal); G82.50 Quadriplegia, unspecified; M47.12 Other spondylosis with myelopathy, cervical region; G35 Multiple sclerosis; I11.0 Hypertensive heart disease with heart failure; H47.092 Other disorders of optic nerve, not elsewhere classified, left eye; I50.30 Unspecified diastolic (congestive) heart failure; H51.23 Internuclear ophthalmoplegia, bilateral; E03.9 Hypothyroidism, unspecified; D63.8 Anemia in other chronic diseases classified elsewhere; G51.0 Bell's palsy; I16.1 Hypertensive emergency; Z96.643 Presence of artificial hip joint, bilateral; Z90.49 Acquired absence of other specified parts of digestive tract; Z82.49 Family history of ischemic heart disease and other diseases of the circulatory system
CPT/HCPCS: 36415; 70543; 70551; 71045; 72156; 80061; 80305; 82550; 82553; 82607; 82746; 82962; 83036; 83540; 83550; 84439; 84443; 84484; 93005; 93970; 97162; 97166; 99284; 99291; A9577; J1100; J1650; J1885; J7512

== ENCOUNTER 2018-12-22 14:45 | Emergency (ER) | payer MEDICAID ==
[~2018-12-22] VITALS: Ht 167.6 cm; Wt 119.0 kg
[~2018-12-22 14:45] MED LIST changes: +AMLO2.5T45 PO; -ASPI-1158 PO; +CLON0.1T14 PO; -DOCU-138 PO; -HYDR25TA PO; +LEVO25TA2 PO; -LEVO25TA7 PO; -LOSA50TA3 PO; -NIFE60TA64 PO
[2018-12-22 15:41] VITALS: BP 182/101
== END 2018-12-23 00:10 | disposition left against medical advice (07) ==
LOC: ER 14:45
DX: M54.2 Cervicalgia (principal); M79.601 Pain in right arm; Z53.21 Procedure and treatment not carried out due to patient leaving prior to being seen by health care provider

== ENCOUNTER 2018-12-30 13:19 | Emergency (ER) | payer MEDICAID ==
[~2018-12-30] VITALS: Ht 167.6 cm; Wt 118.0 kg
[2018-12-30 14:37] VITALS: BP 179/110
[2018-12-30 15:00] LABS: BASOPHILS % 1.3 % (0.0-2.0); EOSINOPHILS % 1.7 % (0.0-5.0); HEMATOCRIT. 36.1 % (36.0-48.0); HEMOGLOBIN. 11.7 g/dL (12.0-16.0); LYMPHOCYTES % 23.8 % (20.0-50.0); MEAN CORPUSCULAR HEMOGLOBIN 26.7 pg (28.0-32.0); MEAN CORPUSCULAR VOLUME 82.1 fL (81.0-99.0); MEAN PLATELET VOLUME 9.1 fl (7.4-10.4); NEUTROPHILS % 66.2 % (40.0-76.0); PLATELET 267 x1000/uL (130-400); RED BLOOD CELL COUNT 4.39 mill/uL (4.2-5.4); RED CELL DISTRIBUTION WIDTH 19.7 % (11.6-14.6)
[2018-12-30 15:06] LABS: CHLORIDE 107 mEq/L (98-107)
== END 2018-12-30 15:36 | disposition home or self-care (01) ==
LOC: ER 13:19
DX: S40.011A Contusion of right shoulder, initial encounter (principal); S00.83XA Contusion of other part of head, initial encounter; R07.89 Other chest pain; W01.10XA Fall on same level from slipping, tripping and stumbling with subsequent striking against unspecified object, initial encounter; Y93.89 Activity, other specified; Y92.89 Other specified places as the place of occurrence of the external cause; G35 Multiple sclerosis
CPT/HCPCS: 36415; 71045; 73030; 84484; 93005; 99284

== ENCOUNTER 2019-03-25 10:51 | Emergency (ER) | payer MEDICAID ==
[~2019-03-25] VITALS: Ht 167.6 cm; Wt 98.2 kg
[2019-03-25] MEDS ORDERED: LABETALOL 5MG/ML SYR 20 MG/4 ML SYRINGE IV ONE (11:45)
[2019-03-25 12:15] LABS: BASOPHILS % 1.9 % (0.0-2.0); EOSINOPHILS % 3.4 % (0.0-5.0); HEMATOCRIT. 31.2 % (36.0-48.0); HEMOGLOBIN. 10.1 g/dL (12.0-16.0); LYMPHOCYTES % 23.2 % (20.0-50.0); MEAN CORPUSCULAR HEMOGLOBIN 27.1 pg (28.0-32.0); MEAN CORPUSCULAR VOLUME 83.7 fL (81.0-99.0); MEAN PLATELET VOLUME 9.4 fl (7.4-10.4); MONOCYTES % 8.1 % (2.0-8.0); NEUTROPHILS % 63.4 % (40.0-76.0); PLATELET 218 x1000/uL (130-400); RED BLOOD CELL COUNT 3.73 mill/uL (4.2-5.4); RED CELL DISTRIBUTION WIDTH 16.9 % (11.6-14.6)
[2019-03-25 12:21] LABS: CHLORIDE 111 mEq/L (98-107)
[2019-03-25 12:25] LABS: PARTIAL THROMBOPLASTIN TIME 28.9 sec (23.4-31.0); PROTHROMBIN TIME 10.3 sec (9.6-11.0)
[2019-03-25 12:26] LABS: ETHANOL BLOOD < 10 mg/dL
[2019-03-25 13:30] LABS: CLARITY URINE CLEAR (CLEAR); COLOR URINE YELLOW (YELLOW); KETONES URINE NEGATIVE (NEGATIVE); LEUKOCYTE ESTERASE URINE NEGATIVE (NEGATIVE); NITRITE URINE NEGATIVE (NEGATIVE); OCCULT BLOOD URINE NEGATIVE (NEGATIVE); PROTEIN URINE NEGATIVE (NEGATIVE); SPECIFIC GRAVITY URINE 1.021 (1.005-1.030); UROBILINOGEN URINE 0.2 E.U./dL (0.2-1.0)
[2019-03-25 13:41] LABS: *BENZODIAZEPINES SCREEN URINE NEGATIVE (NEGATIVE); *COCAINE SCREEN URINE NEGATIVE (NEGATIVE)
[2019-03-25 13:42] LABS: *AMPHETAMINES SCREEN URINE NEGATIVE (NEGATIVE); *BARBITURATES SCREEN URINE NEGATIVE (NEGATIVE); CANNABINOID URINE SCREEN NEGATIVE (NEGATIVE); METHADONE URINE SCREEN NEGATIVE (NEGATIVE); OPIATES URINE SCREEN NEGATIVE (NEGATIVE); PHENCYCLIDINE URINE SCREEN NEGATIVE (NEGATIVE)
[2019-03-25] MEDS ORDERED: AMLODIPINE 2.5MG TABLET PO ONE (15:00)
[2019-03-25] MEDS ORDERED: CLONIDINE 0.1MG TABLET PO ONE (15:00)
[2019-03-25 18:38] VITALS: BP 152/81
== END 2019-03-25 18:48 | disposition short-term general hospital (02) ==
LOC: ER 10:51
DX: I16.0 Hypertensive urgency (principal); I11.0 Hypertensive heart disease with heart failure; I50.9 Heart failure, unspecified; R11.2 Nausea with vomiting, unspecified; Z86.73 Personal history of transient ischemic attack (TIA), and cerebral infarction without residual deficits; Z90.49 Acquired absence of other specified parts of digestive tract; Z96.649 Presence of unspecified artificial hip joint; Z90.89 Acquired absence of other organs; Z79.899 Other long term (current) drug therapy
CPT/HCPCS: 36415; 70450; 71045; 80053; 80305; 80320; 81003; 83880; 84484; 85025; 85610; 85730; 93005; 96374; 99291; J3490; Z7610; G0480

== ENCOUNTER 2019-05-21 17:12 | Inpatient (IN) | payer MEDICAID ==
[~2019-05-21] VITALS: Ht 167.6 cm; Wt 128.4 kg
[2019-05-21] MEDS ORDERED: ONDANSETRON HCL 4MG/2ML INJ IV STA (18:03)
[2019-05-21] MEDS ORDERED: MORPHINE SULFATE 4 MG/ML CPJ (NOT FOR IM USE) IV STA (18:03)
[2019-05-21] MEDS ORDERED: NITROGLYCERIN OINT 1GM/INCH UDPKT TD ONE (18:15)
[2019-05-21 18:48] LABS: EOSINOPHILS % 2.2 % (0.0-5.0); HEMATOCRIT. 33.5 % (36.0-48.0); HEMOGLOBIN. 10.9 g/dL (12.0-16.0); LYMPHOCYTES % 20.2 % (20.0-50.0); MEAN CORPUSCULAR HEMOGLOBIN 27.5 pg (28.0-32.0); MEAN CORPUSCULAR VOLUME 84.2 fL (81.0-99.0); MEAN PLATELET VOLUME 9.3 fl (7.4-10.4); MONOCYTES % 9.6 % (2.0-8.0); PLATELET 227 x1000/uL (130-400); RED BLOOD CELL COUNT 3.97 mill/uL (4.2-5.4); RED CELL DISTRIBUTION WIDTH 17.8 % (11.6-14.6)
[2019-05-21 18:50] LABS: CHLORIDE 106 mEq/L (98-107)
[2019-05-21 18:52] LABS: *BARBITURATES SCREEN URINE NEGATIVE (NEGATIVE)
[2019-05-21 18:53] LABS: *AMPHETAMINES SCREEN URINE NEGATIVE (NEGATIVE)
[2019-05-21 18:54] LABS: *BENZODIAZEPINES SCREEN URINE NEGATIVE (NEGATIVE); *COCAINE SCREEN URINE NEGATIVE (NEGATIVE); METHADONE URINE SCREEN NEGATIVE (NEGATIVE)
[2019-05-21 18:55] LABS: CANNABINOID URINE SCREEN NEGATIVE (NEGATIVE); OPIATES URINE SCREEN NEGATIVE (NEGATIVE); PHENCYCLIDINE URINE SCREEN NEGATIVE (NEGATIVE)
[2019-05-21] MEDS ORDERED: LORAZEPAM 0.5MG TABLET PO PRN (22:15)
[2019-05-21] MEDS ORDERED: IPRATROPIUM/ALBUTEROL 0.5-3(2.5)MG/3ML NEB INH PRN (22:15)
[2019-05-21] MEDS ORDERED: CLONIDINE 0.1MG TABLET PO PRN (22:15)
[2019-05-21] MEDS ORDERED: ONDANSETRON HCL 4MG/2ML INJ IV PRN (22:15)
[2019-05-21] MEDS ORDERED: HYDROCODONE/ACETAMINOPHEN 5/325MG TABLET PO PRN (22:15)
[2019-05-21] MEDS ORDERED: DOCUSATE SODIUM 100MG CAPSULE PO PRN (22:15)
[2019-05-22] MEDS: ACETAMINOPHEN 325MG TABLET PO PRN ×2 (02:32→16:58)
[2019-05-22 02:35] VITALS: BP 128/67
[2019-05-22 04:00] VITALS: BP 112/57
[2019-05-22 06:52] LABS: EOSINOPHILS % 3.2 % (0.0-5.0); HEMATOCRIT. 32.1 % (36.0-48.0); HEMOGLOBIN. 10.7 g/dL (12.0-16.0); LYMPHOCYTES % 26.1 % (20.0-50.0); MEAN CORPUSCULAR HEMOGLOBIN 28.2 pg (28.0-32.0); MEAN CORPUSCULAR VOLUME 84.7 fL (81.0-99.0); MONOCYTES % 10.3 % (2.0-8.0); NEUTROPHILS % 59.4 % (40.0-76.0); PLATELET 209 x1000/uL (130-400); RED BLOOD CELL COUNT 3.79 mill/uL (4.2-5.4); RED CELL DISTRIBUTION WIDTH 17.4 % (11.6-14.6)
[2019-05-22 07:04] LABS: CHLORIDE 106 mEq/L (98-107)
[2019-05-22 08:00] VITALS: BP 130/72
[2019-05-22] MEDS ORDERED: CLONIDINE 0.1MG TABLET PO SCH (12:00)
[2019-05-22] MEDS ORDERED: ENOXAPARIN 30MG/0.3ML SYR SUBCUT SCH (12:30)
[2019-05-22 12:51] VITALS: BP 135/78
[2019-05-22] MEDS: AMLODIPINE 2.5MG TABLET PO SCH ×2 (12:54→20:34)
[2019-05-22 13:26] LABS: BG BASE EXCESS -0.6 mmol/L (-2.0-2.0); BG CARBOXYHEMOGLOBIN 0.3 % (0.5-1.5); BG DEOXYHEMOGLOBIN 3.1 % (0.0-5.0); BG FRACTION INSPIRED OXYGEN 21; BG HCO3 ACT 23.7 mmol/L (22.0-26.0); BG METHEMOGLOBIN 0.2 % (0.0-1.5); BG OXYGEN SATURATION 96.9 % (92.0-98.5); BG OXYHEMOGLOBIN 96.4 % (94.0-97.0); BG PCO2 37.9 mmHg (35.0-45.0); BG PH 7.414 (7.350-7.450); BG SAMPLE SITE LEFT RADIAL; BG TOTAL HEMOGLOBIN 11.9 g/dL (12.0-18.0); BG VENT MODE ROOM AIR
[2019-05-22] MEDS ORDERED: CLON0.1T PO (14:13)
[2019-05-22] MEDS ORDERED: MULT1TAB63 PO (14:13)
[2019-05-22] MEDS ORDERED: AMLO10TA80 PO (14:13)
[2019-05-22] MEDS ORDERED: CLOP75TA4 PO (14:13)
[2019-05-22] MEDS ORDERED: FOLI-43 PO (14:13)
[2019-05-22] MEDS ORDERED: LEVO25TA2 PO (14:20)
[2019-05-22] MEDS ORDERED: REGADENOSON 0.4 MG/5 ML IV NR (15:15)
[2019-05-22] MEDS ORDERED: ASPIRIN 81MG EC TABLET PO NR (15:30)
[2019-05-22 16:06] VITALS: BP 139/65
[2019-05-22 17:49] LABS: PROTHROMBIN TIME 10.2 sec (9.6-11.0)
[2019-05-22 20:00] VITALS: BP 136/75
[2019-05-22] MEDS: ENOXAPARIN 40MG/0.4ML SYR SUBCUT SCH (20:34)
[2019-05-23] VITALS: BP 145/74
[2019-05-23 04:00] VITALS: BP 153/84
[2019-05-23] MEDS ORDERED: LEVOTHYROXINE SODIUM 25MCG TABLET PO SCH (07:20)
[2019-05-23 08:17] VITALS: BP 166/91
[2019-05-23] MEDS: ENOXAPARIN 40MG/0.4ML SYR SUBCUT SCH (09:00)
[2019-05-23] MEDS ORDERED: ASPIRIN 81MG EC TABLET PO SCH (09:00)
[2019-05-23] MEDS ORDERED: REGADENOSON 0.4 MG/5 ML IV ONE (09:06)
[2019-05-23] MEDS: ACETAMINOPHEN 325MG TABLET PO PRN (10:20)
[2019-05-23] MEDS: AMLODIPINE 2.5MG TABLET PO SCH (10:21)
[2019-05-23 12:18] VITALS: BP 124/71
[2019-05-23 15:39] LABS: BASOPHILS % 1.1 % (0.0-2.0); EOSINOPHILS % 3.2 % (0.0-5.0); HEMATOCRIT. 36.8 % (36.0-48.0); LYMPHOCYTES % 20.4 % (20.0-50.0); MEAN CORPUSCULAR HEMOGLOBIN 27.7 pg (28.0-32.0); MEAN CORPUSCULAR VOLUME 85.2 fL (81.0-99.0); MEAN PLATELET VOLUME 9.8 fl (7.4-10.4); MONOCYTES % 9.3 % (2.0-8.0); PLATELET 233 x1000/uL (130-400); RED BLOOD CELL COUNT 4.32 mill/uL (4.2-5.4); RED CELL DISTRIBUTION WIDTH 17.9 % (11.6-14.6)
[2019-05-23 16:14] VITALS: BP 149/92
[2019-05-23 17:03] VITALS: BP 149/92
[2019-05-23 17:38] LABS: CHLORIDE 104 mEq/L (98-107)
[2019-05-23 17:45] LABS: LDL CHOLESTEROL 95 mg/dL (5-100)
[2019-05-23 17:46] LABS: HDL CHOLESTEROL 75 mg/dL (40-59)
[2019-05-23 17:47] LABS: T4 FREE 1.02 ng/dL (0.76-1.46)
== END 2019-05-23 18:00 | disposition home or self-care (01) | DRG 203 ==
LOC: ER 18:38 → 6WST 18:39 → ENRESERV 05-22 01:22
PROVIDERS: ADMIT Internal Medicine; ATTEND Internal Medicine
DX: R07.89 Other chest pain (principal); G82.50 Quadriplegia, unspecified; I50.43 Acute on chronic combined systolic (congestive) and diastolic (congestive) heart failure; E83.51 Hypocalcemia; G35 Multiple sclerosis; M48.02 Spinal stenosis, cervical region; E66.2 Morbid (severe) obesity with alveolar hypoventilation; I11.0 Hypertensive heart disease with heart failure; D63.8 Anemia in other chronic diseases classified elsewhere; E89.0 Postprocedural hypothyroidism; G40.909 Epilepsy, unspecified, not intractable, without status epilepticus; G51.0 Bell's palsy; Z96.643 Presence of artificial hip joint, bilateral; H49.9 Unspecified paralytic strabismus; J98.11 Atelectasis; M79.7 Fibromyalgia; Z82.3 Family history of stroke; Z68.42 Body mass index [BMI] 45.0-49.9, adult; Z82.49 Family history of ischemic heart disease and other diseases of the circulatory system; Z86.73 Personal history of transient ischemic attack (TIA), and cerebral infarction without residual deficits; Z90.49 Acquired absence of other specified parts of digestive tract; Z91.19 Patient's noncompliance with other medical treatment and regimen; Z79.899 Other long term (current) drug therapy
CPT/HCPCS: 36415; 36600; 71045; 78452; 80048; 80061; 80305; 82375; 82805; 83880; 84439; 84443; 84484; 93005; 93017; 93306; 93970; 96374; 96375; 97162; 99285; A9500; J1650; J2270; J2405; J2785

== ENCOUNTER 2019-08-24 15:42 | Inpatient (IN) | payer MEDICARE ==
[~2019-08-24] VITALS: Ht 167.6 cm; Wt 122.9 kg
[~2019-08-24 15:42] MED LIST changes: +AMLO10TA80 PO; -AMLO2.5T45 PO; +CLON0.1T PO; -CLON0.1T14 PO; +CLOP75TA4 PO; +FOLI-43 PO; +MULT1TAB63 PO
[2019-08-24 17:32] LABS: BASOPHILS % 1.7 % (0.0-2.0); EOSINOPHILS % 2.7 % (0.0-5.0); HEMATOCRIT. 31.9 % (36.0-48.0); LYMPHOCYTES % 28.8 % (20.0-50.0); MEAN CORPUSCULAR HEMOGLOBIN 29.4 pg (28.0-32.0); MEAN CORPUSCULAR VOLUME 85.2 fL (81.0-99.0); MEAN PLATELET VOLUME 9.8 fl (7.4-10.4); MONOCYTES % 8.1 % (2.0-8.0); NEUTROPHILS % 58.7 % (40.0-76.0); PLATELET 132 x1000/uL (130-400); RED BLOOD CELL COUNT 3.74 mill/uL (4.2-5.4); RED CELL DISTRIBUTION WIDTH 16.6 % (11.6-14.6)
[2019-08-24 17:39] LABS: CHLORIDE 110 mEq/L (98-107)
[2019-08-24 19:57] LABS: CREATINE KINASE 209 IU/L (26-192)
[2019-08-24 20:11] LABS: CLARITY URINE CLEAR (CLEAR); COLOR URINE YELLOW (YELLOW); KETONES URINE NEGATIVE (NEGATIVE); LEUKOCYTE ESTERASE URINE NEGATIVE (NEGATIVE); NITRITE URINE NEGATIVE (NEGATIVE); OCCULT BLOOD URINE NEGATIVE (NEGATIVE); PH URINE 6.5 (4.5-8.0); PROTEIN URINE NEGATIVE (NEGATIVE); SPECIFIC GRAVITY URINE 1.012 (1.005-1.030); UROBILINOGEN URINE 0.2 E.U./dL (0.2-1.0)
[2019-08-24 20:42] LABS: PLATELET ESTIMATE NORMAL
[2019-08-25] VITALS (7 sets, daily range): BP systolic 127–148; BP diastolic 57–80
[2019-08-25] MEDS ORDERED: ACETAMINOPHEN 325MG TABLET PO PRN (02:15)
[2019-08-25] MEDS ORDERED: CLONIDINE 0.1MG TABLET PO PRN (02:15)
[2019-08-25] MEDS ORDERED: HYDROCODONE/ACETAMINOPHEN 5/325MG TABLET PO PRN (12:00)
[2019-08-25] MEDS ORDERED: ONDANSETRON HCL 4MG/2ML INJ IV PRN (12:00)
[2019-08-25] MEDS: LEVOTHYROXINE SODIUM 25MCG TABLET PO SCH (12:15)
[2019-08-25 17:41] LABS: CREATINE KINASE 155 IU/L (26-192)
[2019-08-25] MEDS: ENOXAPARIN 30MG/0.3ML SYR SUBCUT SCH (20:29)
[2019-08-25 23:48] LABS: CREATINE KINASE 149 IU/L (26-192)
[2019-08-26] VITALS: BP 126/57
[2019-08-26 04:00] VITALS: BP 150/81
[2019-08-26 08:00] VITALS: BP 162/89
[2019-08-26] MEDS: LEVOTHYROXINE SODIUM 25MCG TABLET PO SCH (08:18)
[2019-08-26] MEDS: ENOXAPARIN 30MG/0.3ML SYR SUBCUT SCH (08:19)
[2019-08-26 10:30] LABS: BASOPHILS % 1.6 % (0.0-2.0); EOSINOPHILS % 2.7 % (0.0-5.0); HEMATOCRIT. 33.8 % (36.0-48.0); HEMOGLOBIN. 11.1 g/dL (12.0-16.0); LYMPHOCYTES % 24.4 % (20.0-50.0); MEAN CORPUSCULAR HEMOGLOBIN 27.5 pg (28.0-32.0); MEAN CORPUSCULAR VOLUME 83.7 fL (81.0-99.0); MEAN PLATELET VOLUME 9.3 fl (7.4-10.4); MONOCYTES % 7.3 % (2.0-8.0); PLATELET 265 x1000/uL (130-400); RED BLOOD CELL COUNT 4.03 mill/uL (4.2-5.4); RED CELL DISTRIBUTION WIDTH 16.4 % (11.6-14.6)
[2019-08-26 10:42] LABS: CHLORIDE 108 mEq/L (98-107)
[2019-08-26 10:50] LABS: LDL CHOLESTEROL 98 mg/dL (5-100)
[2019-08-26 10:51] LABS: T4 FREE 1.05 ng/dL (0.76-1.46)
[2019-08-26 10:52] LABS: HDL CHOLESTEROL 74 mg/dL (40-59)
[2019-08-26 12:00] VITALS: BP 159/84
[2019-08-26] MEDS ORDERED: LIDOCAINE HCL 1% 20ML VIAL (Pyxis) INJ ONE (13:48)
[2019-08-26] MEDS ORDERED: SODIUM BICARBONATE 4% (2.4MEQ) 5ML VIAL IV ONE (13:48)
[2019-08-26 13:56] LABS: PROTHROMBIN TIME 10.6 sec (9.6-11.0)
[2019-08-26] MEDS ORDERED: HYDRALAZINE 20MG/ML VIAL IV PRN (14:45)
[2019-08-26] MEDS ORDERED: LACTULOSE 20G/30ML UDC PO PRN (14:45)
[2019-08-26] MEDS: ACETAMINOPHEN 325MG TABLET PO PRN ×2 (15:12→21:58)
[2019-08-26 16:11] LABS: GLUCOSE CSF 60 mg/dL (41-75)
[2019-08-26 16:13] VITALS: BP 149/65
[2019-08-26] MEDS: DEXAMETHASONE 4MG/ML 1ML VIAL IV SCH (18:01)
[2019-08-26 20:00] VITALS: BP 162/80
[2019-08-26] MEDS: BUDESONIDE 0.5MG/2ML NEB HHN SCH (21:17)
[2019-08-26] MEDS: FAMOTIDINE 20MG TABLET PO SCH (21:58)
[2019-08-27] VITALS: BP 149/80
[2019-08-27] MEDS: DEXAMETHASONE 4MG/ML 1ML VIAL IV SCH ×4 (00:01→17:35)
[2019-08-27 04:00] VITALS: BP 142/72
[2019-08-27 06:44] LABS: CHLORIDE 108 mEq/L (98-107)
[2019-08-27 07:02] LABS: HEMATOCRIT. 34.6 % (36.0-48.0); HEMOGLOBIN. 11.1 g/dL (12.0-16.0); MEAN CORPUSCULAR HEMOGLOBIN 26.9 pg (28.0-32.0); MEAN CORPUSCULAR VOLUME 83.6 fL (81.0-99.0); MEAN PLATELET VOLUME 9.8 fl (7.4-10.4); PLATELET 305 x1000/uL (130-400); RED BLOOD CELL COUNT 4.13 mill/uL (4.2-5.4); RED CELL DISTRIBUTION WIDTH 16.4 % (11.6-14.6)
[2019-08-27 08:00] VITALS: BP 131/77
[2019-08-27] MEDS: ACETAMINOPHEN 325MG TABLET PO PRN ×2 (09:11→17:35)
[2019-08-27] MEDS: LEVOTHYROXINE SODIUM 25MCG TABLET PO SCH (09:14)
[2019-08-27] MEDS ORDERED: FURO-152 PO (09:17)
[2019-08-27] MEDS: BUDESONIDE 0.5MG/2ML NEB HHN SCH ×2 (09:43→20:23)
[2019-08-27] MEDS: IPRATROPIUM/ALBUTEROL 0.5-3(2.5)MG/3ML NEB HHN PRN ×2 (09:43→12:33)
[2019-08-27] MEDS: AMLODIPINE 5MG TABLET PO SCH ×2 (10:30→21:22)
[2019-08-27 10:37] LABS: PLATELET ESTIMATE NORMAL
[2019-08-27 12:00] VITALS: BP 162/69
[2019-08-27 16:00] VITALS: BP 173/74
[2019-08-27 20:00] VITALS: BP 144/78
[2019-08-27] MEDS: FAMOTIDINE 20MG TABLET PO SCH (21:22)
[2019-08-28] VITALS: BP 136/77
[2019-08-28] MEDS: DEXAMETHASONE 4MG/ML 1ML VIAL IV SCH ×3 (00:07→12:15)
[2019-08-28 08:00] VITALS: BP 150/82
[2019-08-28] MEDS: LEVOTHYROXINE SODIUM 25MCG TABLET PO SCH (08:59)
[2019-08-28] MEDS: AMLODIPINE 5MG TABLET PO SCH (08:59)
[2019-08-28] MEDS: BUDESONIDE 0.5MG/2ML NEB HHN SCH (09:19)
[2019-08-28 12:00] VITALS: BP 168/85
[2019-08-28] MEDS ORDERED: PRED10TA MT (13:44)
[2019-08-28] MEDS ORDERED: P20 MT (13:44)
[2019-08-28] MEDS ORDERED: ALBU90AE INH (13:44)
[2019-08-28] MEDS ORDERED: FLUT1AER INH (13:44)
[2019-08-28] MEDS ORDERED: P20 PO (13:44)
[2019-08-28 14:09] VITALS: BP 168/85
[2019-08-28 16:00] VITALS: BP 145/75
== END 2019-08-28 17:00 | disposition home health service (06) | DRG 43 ==
LOC: ER 15:42 → 7WST 20:45 → ENRESERV 23:48
PROVIDERS: ADMIT Internal Medicine; ATTEND Internal Medicine
PROC: 009U3ZZ Drainage of Spinal Canal, Percutaneous Approach (ICD-10-PCS; principal; 2019-08-26)
PROC: B01B1ZZ Fluoroscopy of Spinal Cord using Low Osmolar Contrast (ICD-10-PCS; 2019-08-26)
DX: G35 Multiple sclerosis (principal); I50.33 Acute on chronic diastolic (congestive) heart failure; M47.12 Other spondylosis with myelopathy, cervical region; I11.0 Hypertensive heart disease with heart failure; M79.7 Fibromyalgia; I25.10 Atherosclerotic heart disease of native coronary artery without angina pectoris; Z96.649 Presence of unspecified artificial hip joint; R26.9 Unspecified abnormalities of gait and mobility; G51.0 Bell's palsy; D64.9 Anemia, unspecified; E89.0 Postprocedural hypothyroidism; G40.909 Epilepsy, unspecified, not intractable, without status epilepticus; G95.20 Unspecified cord compression; M48.02 Spinal stenosis, cervical region; Z91.19 Patient's noncompliance with other medical treatment and regimen; Z86.73 Personal history of transient ischemic attack (TIA), and cerebral infarction without residual deficits; Z90.49 Acquired absence of other specified parts of digestive tract; Z90.89 Acquired absence of other organs; Z79.899 Other long term (current) drug therapy
CPT/HCPCS: 36415; 62270; 70544; 70552; 70553; 72156; 77003; 80048; 80061; 81003; 82040; 82042; 82550; 82784; 82945; 83516; 83873; 83880; 84157; 84439; 84443; 84484; 86256; 87070; 93005; 93970; 94640; 97112; 97162; 97166; 97535; 99285; J1100; J1650; J3490; J7620; J7626

== ENCOUNTER 2020-01-04 18:05 | Emergency (ER) | payer MEDICARE ==
[~2020-01-04] VITALS: Ht 167.6 cm; Wt 127.0 kg
[~2020-01-04 18:05] MED LIST changes: +ALBU90AE INH; -CLOP75TA4 PO; +FLUT1AER INH; -FOLI-43 PO; +FURO-152 PO; -MULT1TAB63 PO; +P20 MT; +P20 PO; +PRED10TA MT
[2020-01-04] MEDS ORDERED: CLONIDINE 0.2MG TABLET PO ONE (18:45)
[2020-01-04 19:24] LABS: BASOPHILS % 1.1 % (0.0-2.0); HEMOGLOBIN. 11.6 g/dL (12.0-16.0); LYMPHOCYTES % 29.1 % (20.0-50.0); MEAN CORPUSCULAR HEMOGLOBIN 28.3 pg (28.0-32.0); MEAN CORPUSCULAR VOLUME 85.2 fL (81.0-99.0); MONOCYTES % 10.7 % (2.0-8.0); NEUTROPHILS % 56.1 % (40.0-76.0); PLATELET 266 x1000/uL (130-400); RED BLOOD CELL COUNT 4.11 mill/uL (4.2-5.4); RED CELL DISTRIBUTION WIDTH 17.3 % (11.6-14.6)
[2020-01-04 19:29] LABS: CHLORIDE 109 mEq/L (98-107); PARTIAL THROMBOPLASTIN TIME 26.5 sec (23.4-31.0); PROTHROMBIN TIME 10.7 sec (9.6-11.0)
[2020-01-04] MEDS ORDERED: ASPIRIN 325MG EC TABLET PO ONE (20:30)
[2020-01-04 22:30] VITALS: BP 142/73
== END 2020-01-04 22:48 | disposition short-term general hospital (02) ==
LOC: ER 18:19 → CANBEDREQ 01-05 01:18
DX: R29.810 Facial weakness (principal); R20.0 Anesthesia of skin; I11.0 Hypertensive heart disease with heart failure; I50.9 Heart failure, unspecified; D64.9 Anemia, unspecified; Z86.73 Personal history of transient ischemic attack (TIA), and cerebral infarction without residual deficits; Z90.49 Acquired absence of other specified parts of digestive tract; Z98.890 Other specified postprocedural states; E03.9 Hypothyroidism, unspecified; Z79.899 Other long term (current) drug therapy; Z96.649 Presence of unspecified artificial hip joint
CPT/HCPCS: 36415; 71045; 80053; 83880; 84484; 85025; 93005; 99285

== ENCOUNTER 2024-02-15 14:54 | Emergency (ER) | payer MEDICAID, MEDICARE ==
[~2024-02-15] VITALS: Ht 167.6 cm; Wt 130.0 kg
[2024-02-15 15:17] VITALS: O2SAT 100
[2024-02-15 15:28] LABS: BASOPHILS % 2.3 % (0.0-2.0); DIFFERENTIAL COMMENT 0; EOSINOPHILS % 3.4 % (0.0-5.0); HEMATOCRIT. 30.4 % (36.0-48.0); HEMOGLOBIN. 9.7 g/dL (12.0-16.0); MEAN CORPUSCULAR HEMOGLOBIN 24.3 pg (28.0-32.0); MEAN CORPUSCULAR HGB CONC 31.8 g/dL (31.0-37.0); MEAN CORPUSCULAR VOLUME 76.4 fL (81.0-99.0); MEAN PLATELET VOLUME 8.8 fl (7.4-10.4); MONOCYTES % 7.9 % (2.0-8.0); NEUTROPHILS % 58.4 % (40.0-76.0); PLATELET 293 x1000/uL (130-400); RED BLOOD CELL COUNT 3.98 mill/uL (4.2-5.4); RED CELL DISTRIBUTION WIDTH 20.8 % (11.6-14.6); WHITE BLOOD COUNT 7.3 x1000/uL (4.5-11.0)
[2024-02-15 15:30] LABS: CHLORIDE 107 mEq/L (98-107); POTASSIUM 3.4 mEq/L (3.5-5.1); SODIUM 139 mEq/L (136-145)
[2024-02-15 15:31] LABS: CALCIUM 8.9 mg/dL (8.7-10.4); CARBON DIOXIDE 23 mEq/L (21-32)
[2024-02-15 15:36] LABS: CREATININE 0.9 mg/dL (0.6-1.0); GLUCOSE 144 mg/dL (70-105); UREA NITROGEN BLOOD 11 mg/dL (9-23)
[2024-02-15 15:37] LABS: TROPONIN I HIGH SENSITIVITY 4 ng/L (3.0-34)
[2024-02-15 20:25] VITALS: BP 167/76; PULSE 89; RESP 18; TEMP 98.4
== END 2024-02-15 20:18 | disposition home or self-care (01) ==
LOC: ER 15:02 → CANBEDREQ 02-16 16:32
DX: M79.605 Pain in left leg (principal); R06.02 Shortness of breath; I11.0 Hypertensive heart disease with heart failure; E03.9 Hypothyroidism, unspecified; I50.9 Heart failure, unspecified; Z86.73 Personal history of transient ischemic attack (TIA), and cerebral infarction without residual deficits; Z90.49 Acquired absence of other specified parts of digestive tract; Z98.890 Other specified postprocedural states
CPT/HCPCS: 36415; 71045; 80048; 83880; 84484; 85025; 93005; 93971; 99285

== ENCOUNTER 2024-07-10 18:26 | Inpatient (IN) | payer MEDICAID ==
[~2024-07-10] VITALS: Ht 167.6 cm; Wt 128.4 kg
[2024-07-10] MEDS ORDERED: ASPIRIN 325MG EC TABLET PO ONE (18:45)
[2024-07-10] MEDS ORDERED: NITROGLYCERIN 0.4MG TABLET SL SL ONE (18:45)
[2024-07-10 20:33] LABS: BASOPHILS % 0.7 % (0.0-2.0); EOSINOPHILS % 3.2 % (0.0-5.0); HEMATOCRIT. 27.5 % (36.0-48.0); HEMOGLOBIN. 8.6 g/dL (12.0-16.0); LYMPHOCYTES % 24.4 % (20.0-50.0); MEAN CORPUSCULAR HEMOGLOBIN 25.8 pg (28.0-32.0); MEAN CORPUSCULAR HGB CONC 31.3 g/dL (31.0-37.0); MEAN CORPUSCULAR VOLUME 82.5 fL (81.0-99.0); MEAN PLATELET VOLUME 8.9 fl (7.4-10.4); NEUTROPHILS % 61.7 % (40.0-76.0); PLATELET 253 x1000/uL (130-400); RED BLOOD CELL COUNT 3.33 mill/uL (4.2-5.4); RED CELL DISTRIBUTION WIDTH 16.5 % (11.6-14.6); WHITE BLOOD COUNT 9.6 x1000/uL (4.5-11.0)
[2024-07-10 20:35] LABS: DIFFERENTIAL COMMENT 1
[2024-07-10 20:37] LABS: CHLORIDE 108 mEq/L (98-107); POTASSIUM 3.7 mEq/L (3.5-5.1); SODIUM 138 mEq/L (136-145)
[2024-07-10 20:38] LABS: CARBON DIOXIDE 24 mEq/L (21-32)
[2024-07-10 20:39] LABS: CALCIUM 9.1 mg/dL (8.7-10.4)
[2024-07-10 20:43] LABS: GLUCOSE 108 mg/dL (70-105); UREA NITROGEN BLOOD 12 mg/dL (9-23)
[2024-07-10 20:46] LABS: TROPONIN I HIGH SENSITIVITY 5 ng/L (3.0-34)
[2024-07-10] MEDS: ASPIRIN 325MG EC TABLET PO NR (22:45)
[2024-07-10] MEDS: NITROGLYCERIN 0.4MG TABLET SL SL NR (22:45)
[2024-07-11] MEDS: CLONIDINE 0.2MG TABLET PO PRN (01:18)
[2024-07-11 12:00] VITALS: BP 137/81; PULSE 70; RESP 18; TEMP 36.418
[2024-07-11] MEDS ORDERED: IPRATROPIUM/ALBUTEROL 0.5-3(2.5)MG/3ML NEB HHN PRN (12:45)
[2024-07-11] MEDS ORDERED: ONDANSETRON HCL 4MG/2ML INJ IV PRN (12:45)
[2024-07-11] MEDS ORDERED: AMLODIPINE 10MG TABLET PO SCH (12:45)
[2024-07-11] MEDS: ENOXAPARIN 40MG/0.4ML SYR SUBCUT SCH (13:00)
[2024-07-11 13:12] VITALS: BP 137/81; PULSE 70; RESP 18; TEMP 36.3918; O2SAT 98
[2024-07-11] MEDS: HYDROCODONE/ACETAMINOPHEN 5/325MG TABLET PO PRN (15:45)
[2024-07-11] MEDS: LEVOTHYROXINE SODIUM 25MCG TABLET PO SCH (15:45)
[2024-07-11 16:00] VITALS: BP 134/83; PULSE 63; RESP 18; TEMP 36.50292; O2SAT 99
[2024-07-11 17:09] LABS: BASOPHILS % 1.3 % (0.0-2.0); EOSINOPHILS % 4.5 % (0.0-5.0); HEMATOCRIT. 26.1 % (36.0-48.0); HEMOGLOBIN. 8.2 g/dL (12.0-16.0); LYMPHOCYTES % 28.6 % (20.0-50.0); MEAN CORPUSCULAR HEMOGLOBIN 25.8 pg (28.0-32.0); MEAN CORPUSCULAR HGB CONC 31.5 g/dL (31.0-37.0); MEAN CORPUSCULAR VOLUME 81.9 fL (81.0-99.0); MONOCYTES % 13.9 % (2.0-8.0); NEUTROPHILS % 51.7 % (40.0-76.0); PLATELET 258 x1000/uL (130-400); RED BLOOD CELL COUNT 3.19 mill/uL (4.2-5.4); RED CELL DISTRIBUTION WIDTH 16.3 % (11.6-14.6); WHITE BLOOD COUNT 4.4 x1000/uL (4.5-11.0)
[2024-07-11 17:20] LABS: CREATINE KINASE MB FRACTION 0.9 ng/mL (0.5-3.6)
[2024-07-11 17:22] LABS: TRIGLYCERIDE 90 mg/dL (0-150)
[2024-07-11 17:23] LABS: CREATINE KINASE 167 IU/L (34-145); LDL CHOLESTEROL 90 mg/dL (5-100)
[2024-07-11 17:24] LABS: CHOLESTEROL 154 mg/dL (<200); HDL CHOLESTEROL 51 mg/dL (>65); TROPONIN I HIGH SENSITIVITY < 4 ng/L (3.0-34)
[2024-07-11 20:00] VITALS: BP 147/87; PULSE 74; RESP 20; TEMP 36.78072; O2SAT 96
[2024-07-11] MEDS: AMLODIPINE 5MG TABLET PO SCH (20:58)
[2024-07-11] MEDS: METOPROLOL TARTRATE 25MG TABLET PO SCH (20:58)
[2024-07-11] MEDS: ATORVASTATIN CALCIUM 20MG TABLET PO SCH (20:58)
[2024-07-12] VITALS: BP 140/79; PULSE 69; RESP 18; TEMP 36.6696; O2SAT 98
[2024-07-12 00:16] LABS: CREATINE KINASE MB FRACTION 0.8 ng/mL (0.5-3.6)
[2024-07-12 00:18] LABS: CREATINE KINASE 169 IU/L (34-145)
[2024-07-12 00:33] LABS: TROPONIN I HIGH SENSITIVITY < 4 ng/L (3.0-34)
[2024-07-12 04:00] VITALS: BP 157/85; PULSE 64; RESP 20; TEMP 36.9474; O2SAT 95
[2024-07-12 08:00] VITALS: BP 156/54; PULSE 69; RESP 20; TEMP 36.50292; O2SAT 99
[2024-07-12 08:04] LABS: BASOPHILS % 0.9 % (0.0-2.0); EOSINOPHILS % 3.8 % (0.0-5.0); HEMATOCRIT. 28.9 % (36.0-48.0); HEMOGLOBIN. 8.9 g/dL (12.0-16.0); LYMPHOCYTES % 28.6 % (20.0-50.0); MEAN CORPUSCULAR HEMOGLOBIN 25.2 pg (28.0-32.0); MEAN CORPUSCULAR HGB CONC 30.8 g/dL (31.0-37.0); MEAN CORPUSCULAR VOLUME 81.9 fL (81.0-99.0); MEAN PLATELET VOLUME 8.7 fl (7.4-10.4); MONOCYTES % 12.1 % (2.0-8.0); NEUTROPHILS % 54.6 % (40.0-76.0); PLATELET 267 x1000/uL (130-400); RED BLOOD CELL COUNT 3.53 mill/uL (4.2-5.4); RED CELL DISTRIBUTION WIDTH 16.1 % (11.6-14.6); WHITE BLOOD COUNT 5.6 x1000/uL (4.5-11.0)
[2024-07-12 08:08] LABS: CHLORIDE 109 mEq/L (98-107); POTASSIUM 3.9 mEq/L (3.5-5.1); SODIUM 139 mEq/L (136-145)
[2024-07-12 08:10] LABS: CALCIUM 8.9 mg/dL (8.7-10.4); CARBON DIOXIDE 25 mEq/L (21-32)
[2024-07-12 08:14] LABS: CREATININE 0.8 mg/dL (0.6-1.0); GLUCOSE 106 mg/dL (70-105)
[2024-07-12 08:15] LABS: UREA NITROGEN BLOOD 9 mg/dL (9-23)
[2024-07-12 08:16] LABS: TROPONIN I HIGH SENSITIVITY 4 ng/L (3.0-34)
[2024-07-12] MEDS ORDERED: NALOXONE HCL 0.4MG/ML VIAL IV PRN (11:00)
[2024-07-12] MEDS: ENOXAPARIN 30MG/0.3ML SYR SUBCUT SCH (11:00)
[2024-07-12 12:00] VITALS: BP 158/58; PULSE 59; RESP 20; TEMP 36.50292; O2SAT 98
[2024-07-12] MEDS: LOSARTAN 100 MG TABLET PO SCH (13:17)
[2024-07-12] MEDS: ASPIRIN 81MG TABLET PO SCH (13:17)
[2024-07-12 13:18] VITALS: BP 138/58; PULSE 69; TEMP 97.9; O2SAT 98
== END 2024-07-12 15:40 | disposition home or self-care (01) | DRG 199 ==
LOC: ER 18:26 → 5WST 19:37 → EDBEDREQ 19:39 → 8WST 07-11 09:11
PROVIDERS: ADMIT Internal Medicine; ATTEND Internal Medicine
DX: I16.0 Hypertensive urgency (principal); I50.9 Heart failure, unspecified; D64.9 Anemia, unspecified; R07.89 Other chest pain; I11.0 Hypertensive heart disease with heart failure; E03.9 Hypothyroidism, unspecified; E66.01 Morbid (severe) obesity due to excess calories; E78.5 Hyperlipidemia, unspecified; M79.602 Pain in left arm; M79.7 Fibromyalgia; G51.0 Bell's palsy; Z86.73 Personal history of transient ischemic attack (TIA), and cerebral infarction without residual deficits; Z90.49 Acquired absence of other specified parts of digestive tract; Z79.51 Long term (current) use of inhaled steroids; Z79.899 Other long term (current) drug therapy; Z68.42 Body mass index [BMI] 45.0-49.9, adult
CPT/HCPCS: 36415; 71045; 80048; 80061; 82550; 82553; 83036; 83880; 84484; 85025; 85379; 93005; 93306; 99291; J1650

== ENCOUNTER 2024-11-28 18:58 | Emergency (ER) | payer MEDICAID ==
[~2024-11-28] VITALS: Ht 172.7 cm; Wt 130.0 kg
[2024-11-28 19:12] VITALS: O2SAT 98
[2024-11-28 20:40] LABS: CHLORIDE 108 mEq/L (98-107); POTASSIUM 3.6 mEq/L (3.5-5.1); SODIUM 139 mEq/L (136-145)
[2024-11-28 20:41] LABS: CARBON DIOXIDE 24 mEq/L (21-32)
[2024-11-28 20:42] LABS: CALCIUM 9.4 mg/dL (8.7-10.4)
[2024-11-28 20:43] LABS: BASOPHILS % 1.4 % (0.0-2.0); DIFFERENTIAL COMMENT 0; HEMATOCRIT. 31.3 % (36.0-48.0); HEMOGLOBIN. 9.4 g/dL (12.0-16.0); LYMPHOCYTES % 30.3 % (20.0-50.0); MEAN CORPUSCULAR HEMOGLOBIN 22.4 pg (28.0-32.0); MEAN CORPUSCULAR HGB CONC 30.1 g/dL (31.0-37.0); MEAN CORPUSCULAR VOLUME 74.4 fL (81.0-99.0); MEAN PLATELET VOLUME 8.7 fl (7.4-10.4); MONOCYTES % 7.8 % (2.0-8.0); NEUTROPHILS % 56.5 % (40.0-76.0); PLATELET 306 x1000/uL (130-400); RED BLOOD CELL COUNT 4.21 mill/uL (4.2-5.4); RED CELL DISTRIBUTION WIDTH 19.9 % (11.6-14.6); WHITE BLOOD COUNT 7.2 x1000/uL (4.5-11.0)
[2024-11-28 20:46] LABS: GLUCOSE 126 mg/dL (70-105)
[2024-11-28 20:47] LABS: UREA NITROGEN BLOOD 14 mg/dL (9-23)
[2024-11-28 21:11] LABS: TROPONIN I HIGH SENSITIVITY < 4 ng/L (3.0-34)
[2024-11-28] MEDS: CLONIDINE 0.1MG TABLET PO ONE (21:44)
[2024-11-28] MEDS ORDERED: CLONIDINE 0.2MG TABLET PO ONE (22:00)
[2024-11-28] MEDS: AMLODIPINE 10MG TABLET PO ONE (22:04)
[2024-11-28 22:10] VITALS: BP 190/83; PULSE 82; RESP 20; TEMP 36.6; O2SAT 97
[2024-11-28] MEDS: CLONIDINE 0.1MG TABLET PO NR (22:10)
== END 2024-11-28 22:10 | disposition home or self-care (01) ==
LOC: ER 18:58
DX: B34.9 Viral infection, unspecified (principal); E03.9 Hypothyroidism, unspecified; I11.0 Hypertensive heart disease with heart failure; I50.9 Heart failure, unspecified; J44.9 Chronic obstructive pulmonary disease, unspecified; Z79.899 Other long term (current) drug therapy; Z86.73 Personal history of transient ischemic attack (TIA), and cerebral infarction without residual deficits; Z87.891 Personal history of nicotine dependence; Z90.49 Acquired absence of other specified parts of digestive tract; Z96.649 Presence of unspecified artificial hip joint
CPT/HCPCS: 36415; 71045; 80048; 84484; 85025; 93005; 99285